=== PATIENT | female | born 1995 | race Caucasian/White ===

== ENCOUNTER 2018-07-10 14:00 | Emergency (ER) | payer BC, MEDICAID ==
[~2018-07-10] VITALS: Ht 162.6 cm; Wt 72.6 kg
[2018-07-10 14:04] VITALS: BP_SYST 152
--- NOTE | 2018-07-10 14:08 | NUR ---
Placed in room 06 . Placed on equipment monitor phototypesetting, blood pressure machine and pulse oximeter. To gown for exam. Side rails up.
--- NOTE | 2018-07-10 14:10 | NUR ---
Pt presents to ER s/p syncopal episode while at work. Pt denies falling to ground, states that she was assisted onto ground by coworkers. Pt currently currently 14 weeks , c/o nausea, sob; denies vomiting, denies vaginal bleeding. Pt AOX4, speaking full sentences, accompanied by mother, ambulatory.
--- NOTE | 2018-07-10 14:16 | NUR ---
ER at bedside examining patient.
--- NOTE | 2018-07-10 14:26 | NUR ---
Laboratory at bedside.
[2018-07-10 14:39] LABS: BASOPHILS % (AUTO) 0.3 % (0.0-2.0); EOSINOPHILS % (AUTO) 0.1 % (0.0-4.0); HEMATOCRIT 39.9 % (36-48); LYMPHOCYTES # (AUTO) 1.3 K/uL (1.0-5.5); MEAN CORPUSCULAR HEMOGLOBIN 29 pg (27-31); MEAN CORPUSCULAR HGB CONC 33 % (32-36); MEAN CORPUSCULAR VOLUME 88 fL (79.0-98.0); MONOCYTES # (AUTO) 0.3 K/uL (0.0-1.0); MONOCYTES % (AUTO) 2.6 % (1.7-9.3); NEUTROPHILS # (AUTO) 8.6 K/uL (1.8-7.7); PLATELET COUNT (AUTO) 255 K/uL (130-430); RED BLOOD CELL COUNT(AUTO) 4.52 MIL/uL (4.2-6.2); RED CELL DISTRIBUTION WIDTH 11.7 % (9.0-15.0); WHITE BLOOD COUNT (AUTO) 10.2 K/uL (4.8-10.8)
[2018-07-10 14:52] LABS: CALCIUM 9.4 mg/dL (8.4-11.0); CREATININE 0.46 mg/dL (0.55-1.30); POTASSIUM 3.5 mmol/L (3.5-5.1)
[2018-07-10 14:57] LABS: ALBUMIN 3.3 g/dL (3.4-4.8); TOTAL BILIRUBIN 0.2 mg/dL (0.0-1.0)
[2018-07-10 15:02] LABS: BILIRUBIN,URINE NEGATIVE (NEGATIVE); BLOOD, URINE NEGATIVE (NEGATIVE); CLARITY/URINE CLEAR (CLEAR); COLOR,URINE YELLOW (YELLOW); GLUCOSE,URINE NEGATIVE (NEGATIVE); KETONES,URINE 3+ (NEGATIVE); LEUKOCYTE ESTERASE ,URINE NEGATIVE (NEGATIVE); NITRITE, URINE NEGATIVE (NEGATIVE); PH,URINE 6.5 (5.0-8.0); PROTEIN URINE NEGATIVE (NEGATIVE); UROBILINOGEN,URINE 0.2 (0.2-1.0)
--- NOTE | 2018-07-10 15:30 | NUR ---
Patient given written and verbal discharge instructions and verbalizes understanding. ER MD discussed with patient the results and treatment provided. Patient in stable condition. ID arm band removed. No Rx given. Patient educated on pain management and to follow up with PMD. Pain Scale 2. Opportunity for questions provided and answered.
[2018-07-10 15:31] VITALS: BP_SYST 125
== END 2018-07-10 15:30 | disposition home or self-care (01) ==
LOC: SED 14:00
DX: O99.282 Endocrine, nutritional and metabolic diseases complicating pregnancy, second trimester (principal); E86.0 Dehydration; R03.0 Elevated blood-pressure reading, without diagnosis of hypertension; Z3A.14 14 weeks gestation of pregnancy
CPT/HCPCS: 36415; 80053; 81003; 81025; 85025; 99284

== ENCOUNTER 2018-07-27 17:10 | Emergency (ER) | payer BC ==
[~2018-07-27] VITALS: Ht 162.6 cm; Wt 71.2 kg
[2018-07-27 17:38] VITALS: BP_SYST 164
[2018-07-27 19:40] LABS: BASOPHILS % (AUTO) 0.2 % (0.0-2.0); HEMOGLOBIN 11.9 g/dL (12.0-16.0); LYMPHOCYTES # (AUTO) 0.7 K/uL (1.0-5.5); LYMPHOCYTES % (AUTO) 6.8 % (20.5-51.5); MEAN CORPUSCULAR HEMOGLOBIN 29 pg (27-31); MEAN CORPUSCULAR HGB CONC 33 % (32-36); MEAN CORPUSCULAR VOLUME 88 fL (79.0-98.0); MONOCYTES # (AUTO) 0.4 K/uL (0.0-1.0); MONOCYTES % (AUTO) 4.1 % (1.7-9.3); NEUTROPHILS # (AUTO) 8.9 K/uL (1.8-7.7); NEUTROPHILS % (AUTO) 88.9 % (40.0-70.0); PLATELET COUNT (AUTO) 235 K/uL (130-430); RED BLOOD CELL COUNT(AUTO) 4.11 MIL/uL (4.2-6.2); RED CELL DISTRIBUTION WIDTH 11.8 % (9.0-15.0)
[2018-07-27] MEDS ORDERED: NACL 0.9% 1,000 ML IV ONE (19:54)
[2018-07-27 19:55] LABS: CALCIUM 9.5 mg/dL (8.4-11.0); CREATININE 0.46 mg/dL (0.55-1.30); POTASSIUM 3.3 mmol/L (3.5-5.1)
[2018-07-27] MEDS ORDERED: cefTRIAXone 1 GM in D5W 50 ML IV ONE (20:00)
[2018-07-27 20:21] LABS: ALBUMIN 3.1 g/dL (3.4-4.8); TOTAL BILIRUBIN 0.3 mg/dL (0.0-1.0)
[2018-07-27 20:37] LABS: COLOR,URINE YELLOW (YELLOW)
[2018-07-27 20:38] LABS: BILIRUBIN,URINE NEGATIVE (NEGATIVE); BLOOD, URINE TRACE (NEGATIVE); CLARITY/URINE CLEAR (CLEAR); GLUCOSE,URINE NEGATIVE (NEGATIVE); KETONES,URINE 3+ (NEGATIVE); LEUKOCYTE ESTERASE ,URINE NEGATIVE (NEGATIVE); PH,URINE 6.5 (5.0-8.0); PROTEIN URINE 1+ (NEGATIVE)
[2018-07-27 20:39] LABS: NITRITE, URINE POSITIVE (NEGATIVE)
[2018-07-27 20:40] LABS: BACTERIA,URINE MANY /HPF (None Seen); WBC,URINE 0-3 /HPF (0-3)
[2018-07-27] MEDS ORDERED: cefTRIAXone 1 GM VIAL ONE (21:55)
[2018-07-27] MEDS ORDERED: ACETAMINOPHEN 325 MG TABLET PO ONE (22:00)
[2018-07-27 22:56] VITALS: BP_SYST 123
== END 2018-07-27 22:56 | disposition home or self-care (01) ==
LOC: SED 17:10
DX: O23.42 Unspecified infection of urinary tract in pregnancy, second trimester (principal); Z3A.17 17 weeks gestation of pregnancy
CPT/HCPCS: 36415; 76700; 76805; 80053; 81000; 81025; 83690; 84702; 85025; 86901; 87040; 87086; 87186; 96365; 99284; J0696; J7030